=== PATIENT | male | born 1960 | race Caucasian/White ===

== ENCOUNTER 2024-08-08 20:49 | Emergency (ER) | payer MEDICAID ==
[~2024-08-08] VITALS: Ht 167.6 cm; Wt 80.0 kg
[2024-08-08 21:28] VITALS: TEMP 99
[2024-08-08] MEDS: metoprolol tartrate 50mg tablet PO ONE (21:41)
[2024-08-08] MEDS: haloperidol lactate 5mg/ml inj IM ONE (21:42)
[2024-08-08] MEDS: hydrALAZINE 20mg/ml inj. IM ONE (21:47)
[2024-08-08 22:07] VITALS: BP 128/47; PULSE 153; RESP 22; O2SAT 98
== END 2024-08-08 22:13 | disposition home or self-care (01) ==
LOC: ER 20:50
DX: I10 Essential (primary) hypertension (principal); F15.90 Other stimulant use, unspecified, uncomplicated
CPT/HCPCS: 93005; 96372; 99284; J1630